=== PATIENT | female | born 1945 | race Caucasian/White ===

== ENCOUNTER → 2020-07-06 | Outpatient (CLI) | payer MEDICARE | END | disposition home or self-care (01) | LOC: CANPRECLI → CATH 11:35 → EDSTATUS 07-13 07:16 | PROVIDERS: ATTEND Internal Medicine Cardiovascular Disease | DX: Z01.818 Encounter for other preprocedural examination (principal); I25.10 Atherosclerotic heart disease of native coronary artery without angina pectoris; Z98.890 Other specified postprocedural states; Z79.899 Other long term (current) drug therapy ==

== ENCOUNTER 2023-02-26 12:32 | Emergency (ER) | payer MEDICARE ==
[~2023-02-26] VITALS: Ht 162.6 cm; Wt 63.8 kg
[2023-02-26 13:49] LABS: Urine Bacteria NONE SEEN /hpf (None Seen); Urine Blood Negative /uL (Negative); Urine Mucus FEW (None Seen); Urine Specific Gravity 1.021 (1.001-1.035); Urine WBC 2 /hpf (0 - 5)
[2023-02-26 15:05] VITALS: BP 157/68
== END 2023-02-26 15:07 | disposition home or self-care (01) ==
LOC: ER 12:32
DX: M71.21 Synovial cyst of popliteal space [Baker], right knee (principal); E78.5 Hyperlipidemia, unspecified; I12.9 Hypertensive chronic kidney disease with stage 1 through stage 4 chronic kidney disease, or unspecified chronic kidney disease; N18.30 Chronic kidney disease, stage 3 unspecified; Z88.1 Allergy status to other antibiotic agents; Z90.710 Acquired absence of both cervix and uterus; Z90.89 Acquired absence of other organs
CPT/HCPCS: 81001; 93005; 93971

== ENCOUNTER 2025-02-03 08:30 | Day surgery (SDC) | payer MEDICARE ==
[~2025-02-03] VITALS: Ht 162.6 cm; Wt 72.6 kg
[2025-02-03] VITALS (9 sets, daily range): BP systolic 114–138; BP diastolic 59–71; PULSE 61–70; RESP 14–16; O2SAT 92–93
[~2025-02-03 08:30] MED LIST: ALL300T PO; APOA20CA PO; B-CO1CAP18 PO; BUPR10DI TOP; CHOLTAB12 PO; CICL8SOL21 TOP; COEN400C8 OR; COLCPOW2 PO; CRANPOW XX; DENO60SO SC; DULO20CA PO; EZET10TA22 PO; LACTCAP35 OR; LEVO100T8 PO; LOSA-534 PO; MAGN1CAP PO; METH50006 SL; MONT-8 PO; NIFE1TAB31 PO; PANT40TA2 PO; PRED1PAK8 PO; PREG50CA PO; ZINC100T5 PO; ZOLM5TAB33 PO; [UNRECOGNIZED DRUG - CODE] PO
[2025-02-03] MEDS: IODIXANOL 320MG/ML 100ML BTL IV ONE (09:03)
[2025-02-03] MEDS: ANGIOMAX 250 MG VIAL IV ONE (09:12)
[2025-02-03] MEDS: HEPARIN SODIUM (PORCINE) 5000 UNITS/ML 1ML VIAL ONE (09:13)
[2025-02-03] MEDS: LIDOCAINE 2%HCL (LOCAL ANESTH.) INJ 20ML MDV ONE (09:13)
[2025-02-03] MEDS: VERAPAMIL 2.5MG/ML INJ 2ML VIAL IV ONE (09:13)
[2025-02-03] MEDS: fentaNYL CITRATE 100 MCG/2 ML VL ONE (09:13)
[2025-02-03] MEDS: SODIUM CHL 0.9% 0 ML ONE (09:13)
[2025-02-03] MEDS: MIDAZOLAM HCL 2MG/2ML 2ml VIAL (1mg/ml) ONE (09:13)
--- NOTE | 2025-02-03 10:13 | DVHOP2 ---
Operative Report Procedures performed: Bilateral coronary angiogram Moderate sedation Diagnosis: No angiographic evidence for epicardial coronary artery disease (normal coronaries) Known significant aortic stenosis (transthoracic and transesophageal echocardiogram findings/reports) Cardiac suggestion for management: Elective/outpatient referral for aortic valve replacement (TAVR) Optimized medical therapy Lifestyle and risk factor modifications Findings: Left main was coming off the left sinus of Valsalva. There was no angiographic evidence of disease in left main. LAD: LAD was coming off the left main. There was a large diagonal. LAD throughout its course and branches did not reveal any angiographic evidence of disease. Ramus intermedius: Ramus intermedius was a small-caliber vessel with no angiographic evidence of disease and came off the left main. LCX: LCX was a large caliber vessel which came off the left main. It was the dominant vessel and provided LPLB/LPDA. Obtuse marginal was a large branching vessel with no angiographic evidence of disease. PLB was a large-sized vessel with no angiographic evidence of disease. Left PDA was a large caliber vessel with no angiographic evidence of disease. LCX itself was without evidence of disease. RCA: RCA was coming off the right sinus of Valsalva. It was nondominant and small-caliber. There was no angiographic evidence of disease in RCA. Presentation: Patient is a 79-year-old female who presented to the office with dyspnea on exertion. Past medical history includes rheumatoid arthritis, old history of left shoulder fracture, gout, chronic steroid use, CKD, pulmonary hypertension, the Integrative disc disease of lumbar spine, diabetes mellitus, nonhealing ulcer of the right leg, peripheral artery disease, osteoarthritis, diverticulosis, memory loss, old history of DVT and lung fibrosis, liver cirrhosis and right hip placement. Echocardiogram of September 01, 2024 revealed ejection fraction of 65-70%, mild concentric left ventricular hypertrophy, mild left atrial enlargement, severe aortic stenosis suspected; peak/mean pressure gradient of 52/22 mm Hg across Aortic Valve. Suggestion was for transesophageal echocardiogram. Transesophageal echocardiogram was performed on January 26, 2025 ([facility]: Dr Segura) which reported ejection fraction of 65%, moderate left atrial enlargement, mild right atrial enlargement, [id number] mitral annular calcification, trace MR/TR, severe aortic valve calcification and severe aortic stenosis with aortic valve area of 0.7 centimeter. Patient was sent for cardiac catheterization on preparation for referral to aortic valve replacement. Procedure: After obtaining informed consent, the patient was brought to the manufacturing laborer. She was prepped and draped in sterile fashion. Right radial artery was used for access site. 1 mg of Versed and 25 mcg of fentanyl were used for moderate sedation. Using modified Seldinger technique, the right radial artery was accessed and a 6 [place]ian slender sheath was inserted into it. Five [place] tiger 4 diagnostic catheter was used to perform bilateral coronary angiogram. There was no indication for any transcatheter revascularization. As there was known severe aortic stenosis (TTE and KATIANA findings), there was no attempt made to cross the aortic valve. There was no dissection/hematoma/perforation. Patient tolerated the procedure with no complication. Right radial artery access site was managed by deploying a TR band. Fluoroscopy time: 4.9 minutes contrast: 40 mL of MELVA Chapman MD Feb 03, 2025 10:13
[2025-02-03] MEDS: HYDROcodone-ACET 10/325MG TAB PO ONE (10:21)
== END 2025-02-03 13:25 | disposition home or self-care (01) ==
LOC: CATH 08:30
PROVIDERS: ATTEND Internal Medicine Cardiovascular Disease
DX: R06.09 Other forms of dyspnea (principal); I35.0 Nonrheumatic aortic (valve) stenosis; I27.20 Pulmonary hypertension, unspecified; I34.81 Nonrheumatic mitral (valve) annulus calcification; E11.22 Type 2 diabetes mellitus with diabetic chronic kidney disease; E11.51 Type 2 diabetes mellitus with diabetic peripheral angiopathy without gangrene; N18.9 Chronic kidney disease, unspecified; K74.60 Unspecified cirrhosis of liver; M19.90 Unspecified osteoarthritis, unspecified site; M06.9 Rheumatoid arthritis, unspecified; M10.9 Gout, unspecified; M51.369 Other intervertebral disc degeneration, lumbar region without mention of lumbar back pain or lower extremity pain; Z79.52 Long term (current) use of systemic steroids; Z79.890 Hormone replacement therapy; Z79.899 Other long term (current) drug therapy; Z86.718 Personal history of other venous thrombosis and embolism; Z96.641 Presence of right artificial hip joint
CPT/HCPCS: 93454; C1769; C1894; J1644; J2250; J3010; Q9967; 99152